=== PATIENT | female | born 1950 | race Caucasian/White ===

== ENCOUNTER → 2020-10-19 | Outpatient (CLI) | payer OTHER | LOC: MRI 10:21 | PROVIDERS: ATTEND Neuromusculoskeletal Medicine & OMM | DX: G93.89 Other specified disorders of brain (principal); R42 Dizziness and giddiness ==

== ENCOUNTER → 2021-07-15 | Outpatient (CLI) | payer OTHER | LOC: MRI 12:46 | PROVIDERS: ATTEND Nurse Practitioner | DX: M25.451 Effusion, right hip (principal); M51.37 Other intervertebral disc degeneration, lumbosacral region; M47.817 Spondylosis without myelopathy or radiculopathy, lumbosacral region; Z96.641 Presence of right artificial hip joint ==